=== PATIENT | male | born 1970 | race Caucasian/White ===

== ENCOUNTER 2021-07-03 05:04 | Emergency (ER) | payer SELFPAY ==
[~2021-07-03 05:04] MED LIST: ATENOLOL50 MG PO; BENADRYL 50MG C50 MG PO; COZAAR50 MG PO; DICLOFENAC SOD100 GM TP; DOCUSATE SODIU250 MG PO; GLUCOTROL 10 MG10 MG PO; HUMULIN R100 UNIT/1 INJ; IBUPROFEN800 MG PO; METAMUCIL PACK3.4 GM PO; METAMUCIL POWD822 GM PO; MULTIVITAMINS1 EAC1 PO; PERCOCET 10-321 EACH PO; PERCOCET 7.5-31 EACH PO; TENORMIN 50 MG50 MG PO
== END 2021-07-03 06:10 | disposition home or self-care (01) ==
LOC: ER1 05:04
DX: S43.401A Unspecified sprain of right shoulder joint, initial encounter (principal); E10.9 Type 1 diabetes mellitus without complications; I10 Essential (primary) hypertension; X50.0XXA Overexertion from strenuous movement or load, initial encounter; Y92.89 Other specified places as the place of occurrence of the external cause; Y99.0 Civilian activity done for income or pay
CPT/HCPCS: 73030; 99283; J1030